=== PATIENT | male | born 1985 | race Caucasian/White ===

== ENCOUNTER 2020-10-24 22:34 | Emergency (ER) | payer OTHER ==
[~2020-10-24 22:34] MED LIST: CHANTIX0.5 MG PO; CLARITIN10 MG PO; FLEXERIL10 MG PO; IBUPROFEN800 MG PO; MEDROL 4MG DOSEP4 MG PO; MUCINEX 600MG600 MG PO; NAPROXEN500 MG PO; NORCO 5-325 TA1 EACH PO; ONDANSETRON ODT4 MG PO; PREDNISONE 20MG20 MG PO; VENTOLIN HFA IN18 GM INH; ZPAK PO
[2020-10-25] MEDS ORDERED: CATAPRES-T0.1 MG/24 TD (03:28)
== END 2020-10-25 03:40 | disposition home or self-care (01) ==
LOC: FER 22:34
DX: R05 Cough (principal); T46.4X5A Adverse effect of angiotensin-converting-enzyme inhibitors, initial encounter; I10 Essential (primary) hypertension; Z79.899 Other long term (current) drug therapy; Z88.0 Allergy status to penicillin
CPT/HCPCS: 71045

== ENCOUNTER 2021-05-07 17:17 | Emergency (ER) | payer SELFPAY ==
[~2021-05-07 17:17] MED LIST changes: +CATAPRES-T0.1 MG/24 TD
[2021-05-07] MEDS ORDERED: IBUPROFEN800 MG PO (19:51)
== END 2021-05-07 20:26 | disposition home or self-care (01) ==
LOC: FER 17:17
DX: M25.531 Pain in right wrist (principal); F17.210 Nicotine dependence, cigarettes, uncomplicated; Z88.0 Allergy status to penicillin
CPT/HCPCS: 73110

== ENCOUNTER 2021-09-21 10:47 | Emergency (ER) | payer OTHER | END 2021-09-21 12:35 | disposition home or self-care (01) | LOC: FER 10:47 | DX: S30.0XXA Contusion of lower back and pelvis, initial encounter (principal); F17.200 Nicotine dependence, unspecified, uncomplicated; Z88.1 Allergy status to other antibiotic agents; W10.9XXA Fall (on) (from) unspecified stairs and steps, initial encounter | CPT/HCPCS: 72100 ==